=== PATIENT | male | born 1995 | race Caucasian/White ===

== ENCOUNTER 2017-02-06 22:15 | Emergency (ER) | payer BC ==
[2017-02-07 00:44] LABS: AMPHETAMINE QUAL UR NONE DETECTED (NEG <=1000)
[2017-02-07 02:06] VITALS: BP 122/87
== END 2017-02-07 02:06 | disposition home or self-care (01) ==
LOC: ED 22:15
PROVIDERS: Emergency Medicine
DX: R44.2 Other hallucinations (principal); F41.9 Anxiety disorder, unspecified; F12.90 Cannabis use, unspecified, uncomplicated
CPT/HCPCS: 80307

== ENCOUNTER 2017-03-03 18:41 | Emergency (ER) | payer BC ==
[~2017-03-03] VITALS: Ht 175.3 cm; Wt 75.7 kg
[2017-03-03 20:08] VITALS: BP 137/69
== END 2017-03-03 20:08 | disposition home or self-care (01) ==
LOC: ED 18:41
DX: R10.10 Upper abdominal pain, unspecified (principal); R11.10 Vomiting, unspecified; R03.0 Elevated blood-pressure reading, without diagnosis of hypertension
CPT/HCPCS: Q0162